=== PATIENT | male | born 1985 | race Caucasian/White ===

== ENCOUNTER 2020-07-16 20:04 | Emergency (ER) | payer OTHER ==
[2020-07-16 22:37] LABS: BASOPHIL 0.3 % (0-2); EOSINOPHIL 0.2 % (0-5); HCT 44.5 % (42.0-52.0); HGB 15.4 g/dl (13.2-18.0); LYMPHOCYTE 10.7 % (15-48); MCH 32.4 pg (25.0-31.0); MCHC 34.6 g/dL (32.0-36.0); MCV 93.7 fL (78.0-100.0); MONOCYTE 7.5 % (0-12); MPV 9.9 fL (6.0-9.5); NEUTROPHIL 81.1 % (41-80); NRBC 0; PLT 301 K/uL (150-400); RBC 4.75 M/uL (4.70-6.00); RDW 11.7 % (11.5-14.0); WBC 12.2 K/uL (4.0-10.5)
[2020-07-16 22:51] LABS: BUN/CREAT RATIO (CALC) 13.2 RATIO; CREATININE 0.91 mg/dL (0.67-1.17); POTASSIUM 3.8 mmol/L (3.5-5.1)
== END 2020-07-17 00:15 | disposition home or self-care (01) ==
LOC: FER 20:04
PROVIDERS: Emergency Medicine
DX: R00.0 Tachycardia, unspecified (principal); F41.9 Anxiety disorder, unspecified; Z79.899 Other long term (current) drug therapy
CPT/HCPCS: 36415; 80048; 84484; 85025; 93005; J2060; J7030